=== PATIENT | male | born 1940 | race Caucasian/White ===

== ENCOUNTER 2017-03-04 09:43 | Day surgery (SDC) | payer BC ==
[~2017-03-04] VITALS: Ht 175.3 cm; Wt 100.0 kg
--- NOTE | ~2017-03-04 | OP ---
PATIENT NAME: JOSE DANIEL SHEIKH MEDICAL RECORD: [id number] :44 LOCATION:[facility] ADMISSION DATE: SURGEON: TIEN BLANCA DO DATE OF OPERATION: 03/04/2017 PROCEDURE: Colonoscopy with polypectomy and biopsy. INDICATION: Iron deficiency anemia. SCOPE: Olympus video pediatric colonoscope. MEDICATIONS: Propofol 920 mg IV per anesthesia. WITHDRAWAL TIME: Greater than 20 minutes. ESTIMATED BLOOD LOSS: Minimal. COMPLICATIONS: None. PREP QUALITY: Good. FINDINGS: Informed consent was given. The patient was made comfortable with the above medication. After reaching an adequate level of sedation by slow IV push, the patient was placed on his left side. A digital rectal examination was performed and was normal other than a tinge of blood around the rectum. Its undetermined if this is from internal hemorrhoids or visualized during the examination versus inflamed perirectal tissue from a prep. There was no specific bleeding hemorrhoid, fissure, or other lesions identified as the source. The endoscope was advanced under direct visualization through the rectum with great difficulty to the cecum. A significant amount of time was spent trying to reach the cecum. Multiple maneuvers were utilized including counter pressure, changes in position, withdrawing and suction and advancement. Eventually, the cecum was intubated. This was confirmed by visualization of the ileocecal valve and appendiceal orifice. In the cecum, there were 2 polyps. They ranged in size from 5 mm to 8 mm in size. One of the polyps was removed with a snare cautery and partially ablated. The other polyp was ablated. The extent of removal of these polyps is difficult to determine as the scope could not maintain position and the cecum could not be reached again safely in an adequate amount of time. After this, the scope was slowly withdrawn and mucosa was carefully examined. There were 2 other polyps located in the ascending colon, which were benign-appearing and sessile. It measured approximately 6-9 mm in size. There were 3 polyps, all 3 were removed with snare cautery in 1 piece and completely retrieved. There were 3 polyps located in the transverse colon which were benign-appearing and sessile. They ranged in size from 4 mm to 6 mm. They were all removed with snare cautery and completely retrieved. Mild diverticulosis was noted in the descending and sigmoid colon without evidence of diverticulitis. There was no bleeding from these diverticula. Throughout the ascending, transverse and descending colon, there was an appearance of tiny lipid droplets and a change in the mucosa. Random biopsies were taken in different sites to submit for histology. In the descending colon alone, there was an area of large lipid deposition consistent with multiple small lipomas. In the rectum, retroflexion was performed. There was visualization of small nonbleeding internal hemorrhoids. The scope was then withdrawn from the patient. The patient tolerated the procedure well and there were no complications. OPERATIVE REPORT [id number] JOSE DANIEL SHEIKH IMPRESSION: 1. Multiple polyps as described above removed with various methods. 2. Diverticulosis without diverticulitis. 3. Small nonbleeding internal hemorrhoids. 4. Fatty deposition within the colon consistent with lipomatous changes. PLAN AND RECOMMENDATIONS: 1. Discharge home when recovery parameters are met. 2. Follow up biopsy specimen results. 3. Recommend a repeat colonoscopy in 6 months to assure that all polyps have been removed and to investigate cecum further regarding the difficulty with removal of the 2 polyps there and the time required to reach that site. 4. High fiber diet. 5. Continue current medications. 6. Proceed with upper endoscopy as scheduled to investigate the cause of iron deficiency anemia. TRANSINT:[id number] Voice Confirmation ID: [id number] DOCUMENT ID: [id number] TIEN BLANCA DO CC: [id number] DICTATION DATE: 03/04/17 1303 [employer] TECHNICIAN: 03/04/172220 [facility] 03/04/17 [facility] [address] [place] [address]
[2017-03-04] MEDS ORDERED: CLEOCIN HCL300 MG PO (10:19)
[2017-03-04] MEDS ORDERED: GLUCOPHAGE1000 MG PO (10:20)
[2017-03-04] MEDS ORDERED: PRAVASTATIN SOD10 MG PO (10:20)
[2017-03-04] MEDS ORDERED: GEMFIBROZIL600 MG PO (10:20)
[2017-03-04] MEDS ORDERED: AGGRENOX 200/251 CAP PO (10:21)
[2017-03-04] MEDS ORDERED: JANUVIA100 MG PO (10:21)
[2017-03-04] MEDS ORDERED: OMEPRAZOLE20 M1 PO (10:21)
[2017-03-04] MEDS ORDERED: HYDRALAZINE HCL25 MG PO (10:22)
[2017-03-04] MEDS ORDERED: LOTREL 10-40 M1 EACH PO (10:23)
[2017-03-04] MEDS ORDERED: COREG25 MG PO (10:23)
[2017-03-04] MEDS ORDERED: DITROPAN X10 MG/BOTT PO (10:23)
[2017-03-04] MEDS ORDERED: HYZAAR 100-25 T1 TAB PO (10:24)
[2017-03-04] MEDS ORDERED: GLIMEPIRIDE4 MG PO (10:24)
[2017-03-04 10:25] VITALS: Ht 175.3 cm; Wt 100.0 kg
[2017-03-04 10:38] LABS: HEMATOCRIT 36.6 % (42.0-54.0); HEMOGLOBIN 11.9 g/dL (13.5-17.5); MCH 32.5 pg (26.0-34.0); MCHC 32.5 g/dL (31.0-37.0); MEAN PLATELET VOLUME 10.2 fL (7.4-10.4); RBC 3.66 10x6/uL (4.20-6.10); RDW 12.5 % (11.5-14.5); WBC 7.4 10x3/uL (4.8-10.8)
[2017-03-04 11:15] LABS: ANION GAP 16.2 mmol/L (8-16); CALCIUM 9.4 mg/dL (8.5-10.1); CARBON DIOXIDE 29.7 mmol/L (21.0-32.0); CREATININE - SERUM 1.2 mg/dL (0.6-1.3); POTASSIUM - SERUM 3.9 mmol/L (3.5-5.1)
--- NOTE | 2017-03-04 14:58 | NUR ---
1350 FSBS 174. Shayne JOHNSON R.N. 1420 IV DC'ED WITH CATH INTACT & 175ML LTC. PRESSURE TO SITE. NO BLEEDING. DRESSING WITH ASSISTANCE OF . Shayne JOHNSON R.N. 144 DRESSED. AWAKE & ALERT. GIVEN DISCHARGE INFORMATION INCLUDING: MED REC., SHEET LISTING NSAIDS TO AVOID, D/C INSTRUCTIONS SHEET POST ENDOSCOPIC PROCEDURES, & HIGH FIBER DIET HANDOUT. PT & VOICED UNDERSTANDING. TO PRIVATE CAR PER WHEELCHAIR BY VOLUNTEER. HOME WITH , MRS. SHEIKH. Shayne JOHNSON R.N.
== END 2017-03-04 14:45 | disposition home or self-care (01) ==
LOC: D.OPS 09:43
PROVIDERS: Anesthesiology
DX: D12.2 Benign neoplasm of ascending colon (principal); D12.0 Benign neoplasm of cecum; D12.3 Benign neoplasm of transverse colon; K57.30 Diverticulosis of large intestine without perforation or abscess without bleeding; K64.8 Other hemorrhoids; I10 Essential (primary) hypertension; E11.9 Type 2 diabetes mellitus without complications; Z01.812 Encounter for preprocedural laboratory examination

== ENCOUNTER 2017-04-01 09:03 | Day surgery (SDC) | payer BC ==
[~2017-04-01] VITALS: Ht 177.8 cm; Wt 102.7 kg
[~2017-04-01 09:03] MED LIST: AGGRENOX 200/251 CAP PO; CLEOCIN HCL300 MG PO; COREG25 MG PO; DITROPAN X10 MG/BOTT PO; GEMFIBROZIL600 MG PO; GLIMEPIRIDE4 MG PO; GLUCOPHAGE1000 MG PO; HYDRALAZINE HCL25 MG PO; HYZAAR 100-25 T1 TAB PO; JANUVIA100 MG PO; LOTREL 10-40 M1 EACH PO; OMEPRAZOLE20 M1 PO; PRAVASTATIN SOD10 MG PO
[2017-04-01 11:18] LABS: HEMATOCRIT 33.7 % (42.0-54.0); HEMOGLOBIN 10.8 g/dL (13.5-17.5); MCH 31.7 pg (26.0-34.0); MCV 98.8 fL (80.0-100.0); MEAN PLATELET VOLUME 9.8 fL (7.4-10.4); RBC 3.41 10x6/uL (4.20-6.10); RDW 12.2 % (11.5-14.5); WBC 7.6 10x3/uL (4.8-10.8)
[2017-04-01] MEDS ORDERED: JANUVIA100 MG PO (11:18)
[2017-04-01 11:27] VITALS: BP 144/66; Ht 177.8 cm; Wt 102.7 kg
[2017-04-01 11:37] LABS: ANION GAP 15.9 mmol/L (8-16); CALCIUM 9.6 mg/dL (8.5-10.1); CARBON DIOXIDE 27.1 mmol/L (21.0-32.0); CREATININE - SERUM 1.5 mg/dL (0.6-1.3)
--- NOTE | 2017-04-01 12:53 | NUR ---
1235-RECD TO ROOM FROM GI LAB. ALERT. FULL LIQUIDS SERVED. 1240- VOISE HERE TO REPORT FINDINGS TO PATIENT AND .
--- NOTE | 2017-04-01 13:35 | NUR ---
1305-NO NAUSEA AFTER FULL LIQUIDS. IV D/C. DRESSED. 1315-D/C INSTRUCTIONS REVIEWED. 1325-D/C HOME VIA WHEELCHAIR WITH .
--- NOTE | 2017-04-02 09:13 | PRO ---
PATIENT:JOSE DANIEL SHEIKH MEDICAL RECORD: [id number] : 44 LOCATION:[facility] ADMISSION DATE: 04/01/17 PROCEDURE PERFORMED BY: TIEN BLANCA DO DATE OF PROCEDURE: 04/01/2017 PROCEDURE: EGD with biopsies. INDICATIONS FOR PROCEDURE: Iron deficiency anemia. SCOPE: Braingaze video gastroscope. MEDICATIONS: Propofol 200 mg IV per anesthesia. ESTIMATED BLOOD LOSS: Minimal. COMPLICATIONS: None. FINDINGS: Informed consent was given. The patient was made comfortable with the above medication. After reaching an adequate level of sedation by slow IV push, the patient was placed on his left side. The endoscope was then advanced under direct visualization through the mouth to the second portion of the duodenum. The upper, middle, and lower thirds of the esophagus appeared normal. The GE junction appeared normal without evidence of reflux esophagitis. The endoscope was advanced into the stomach and retroflexed to view the cardia which appeared normal. The entire stomach revealed some edematous, erythematous, and friable mucosa consistent with possible gastritis. Multiple biopsies were taken from all areas of the stomach to submit for histology and to rule out H. pylori. There were multiple gastric polyps which appear to be benign fundic gland polyps, likely related to medications. A biopsy was taken of a single polyp. Scope was advanced beyond the pylorus into the duodenum where the bulb and second portion of the duodenum appeared normal. Two random biopsies were taken from the duodenum to submit for histology. Scope was then withdrawn from the patient. The patient tolerated the procedure well and there were no complications. IMPRESSION: 1. Possible gastritis with erythematous, congested, and friable mucosa. Biopsies pending. 2. Multiple gastric polyps as described above. Biopsies pending. PLAN AND RECOMMENDATIONS: 1. Discharge home when recovery parameters are met. 2. Continue current diet. 3. Continue current medications, but increase omeprazole to 40 mg daily times 30 days. After this time, return back to 20 mg of omeprazole daily. 4. Follow up biopsy specimen results. 5. Follow up with primary care provider as scheduled. TRANSINT:[id number] Voice Confirmation ID: [id number] DOCUMENT ID: [id number] PROCEDURE NOTE [id number] JOSE DANIEL SHEIKH TIEN BLANCA DO at 0913 CC: [id number] DICTATION DATE: 04/01/17 1229 [employer] SUPERVISOR: 04/01/17 1817 [facility] 04/01/17 [place] [id number] [place] [id number]
== END 2017-04-01 13:25 | disposition home or self-care (01) ==
LOC: D.OPS 09:03
PROVIDERS: Anesthesiology
DX: D50.9 Iron deficiency anemia, unspecified (principal); I10 Essential (primary) hypertension; E11.9 Type 2 diabetes mellitus without complications; K31.7 Polyp of stomach and duodenum; Z01.812 Encounter for preprocedural laboratory examination

== ENCOUNTER → 2017-07-10 07:51 | Outpatient (CLI) | payer BC ==
[2017-04-01 11:27] VITALS: BMI 32.4
== END | disposition home or self-care (01) ==
LOC: D.CT 07:51
DX: R10.30 Lower abdominal pain, unspecified (principal); R11.0 Nausea; R14.2 Eructation

== ENCOUNTER → 2017-07-12 13:40 | Outpatient (CLI) | payer BC ==
[2017-04-01 11:27] VITALS: BMI 32.4
== END | disposition home or self-care (01) ==
LOC: D.NM 13:40
DX: R10.30 Lower abdominal pain, unspecified (principal); R11.0 Nausea; R14.2 Eructation